=== PATIENT | male | born 1985 | race Caucasian/White ===

== ENCOUNTER 2019-10-04 11:49 | Emergency (ER) | payer BC, OTHER ==
[~2019-10-04] VITALS: Ht 190 cm; Wt 68.3 kg
[2019-10-04] MEDS ORDERED: KETOROLAC 30 MG/ML VIAL IVP STA (11:59)
--- NOTE | 2019-10-04 11:59 | ED Chest Pain ---
General Stated Complaint: CHEST PAIN Source: patient Exam Limitations: no limitations, clinical condition History of Present Illness Date Seen by Provider: Oct 04, 2019 Time Seen by Provider: 11:56 Initial Comments 34-year-old male presents with right-sided chest pain. Patient reports that he woke up with the pain this morning. The pain gets worse with deep breath, movement of his arm or chest, palpation of his chest. He states he short of breath because it hurts to take a deep breath. He has no nausea vomiting diaphoresis. Reports that he does a lot of physical work and thinks that he might have pulled a muscle. He has no other systemic complaints such as cough, fevers, chills. Allergies and Home Medications Allergies Coded Allergies: No Known Drug Allergies (Unverified , 10/04/19) Patient Home Medication List Home Medication List Reviewed: Yes Review of Systems Review of Systems Constitutional: No chills, No fever Respiratory: See HPI Cardiovascular: See HPI Gastrointestinal: No Symptoms Reported Genitourinary: No Symptoms Reported Musculoskeletal: see HPI Psychiatric/Neurological: No Symptoms Reported Past Chhguxz-Xutxvp-Ekbqkp Hx Past Med/Social Hx: Reviewed Nursing Past Med/Soc Hx Patient Social History Recent Foreign Travel: No Physical Exam Vital Signs Vital Signs - First Documented 10/04/19 11:55 Temp 36.8 Pulse 126 Resp 22 B/P (MAP) 123/78 (93) Pulse Ox 100 Capillary Refill : Height, Weight, BMI Height: '" Weight: lbs. oz. kg; BMI Method: General Appearance: WD/WN Neck: Non Tender, Supple Respiratory: Lungs Clear, Normal Breath Sounds, Other (chest wall tenderness that is totally reproducible, worsens with any movement of his right arm or pectoris muscle.) Cardiovascular: Regular Rate, Rhythm, No Edema Extremity: Normal Capillary Refill Neurologic/Psychiatric: Oriented x3, No Motor/Sensory Deficits, Normal Mood/Affect, enterprise resource planner II-XII Norm as Tested Progress/Results/Core Measures Results/Orders Lab Results Laboratory Tests Test 10/04/19 11:58 Range/Units White Blood Count 8.3 4.3-11.0 10^3/uL Red Blood Count 5.51 4.35-5.85 10^6/uL Hemoglobin 17.1 13.3-17.7 G/DL Hematocrit 50 40-54 % Mean Corpuscular Volume 90 80-99 FL Mean Corpuscular Hemoglobin 31 25-34 PG Mean Corpuscular Hemoglobin Concent 34 32-36 G/DL Red Cell Distribution Width 12.3 10.0-14.5 % Platelet Count 250 130-400 10^3/uL Mean Platelet Volume 10.2 7.4-10.4 FL Neutrophils (%) (Auto) 68 42-75 % Lymphocytes (%) (Auto) 21 12-44 % Monocytes (%) (Auto) 10 0-12 % Eosinophils (%) (Auto) 1 0-10 % Basophils (%) (Auto) 1 0-10 % Neutrophils # (Auto) 5.7 1.8-7.8 X 10^3 Lymphocytes # (Auto) 1.7 1.0-4.0 X 10^3 Monocytes # (Auto) 0.8 0.0-1.0 X 10^3 Eosinophils # (Auto) 0.0 0.0-0.3 10^3/uL Basophils # (Auto) 0.1 0.0-0.1 10^3/uL Sodium Level 139 135-145 MMOL/L Potassium Level 4.4 3.6-5.0 MMOL/L Chloride Level 99 98-107 MMOL/L Carbon Dioxide Level 27 21-32 MMOL/L Anion Gap 13 5-14 MMOL/L Blood Urea Nitrogen 27 H 7-18 MG/DL Creatinine 1.34 H 0.60-1.30 MG/DL Estimat Glomerular Filtration Rate > 60 BUN/Creatinine Ratio 20 Glucose Level 95 70-105 MG/DL Calcium Level 10.5 H 8.5-10.1 MG/DL Corrected Calcium 8.5-10.1 MG/DL Total Bilirubin 0.9 0.1-1.0 MG/DL Aspartate Amino Transf (AST/SGOT) 27 5-34 U/L Alanine Aminotransferase (ALT/SGPT) 14 0-55 U/L Alkaline Phosphatase 55 40-136 U/L Troponin I < 0.30 <0.30 NG/ML Total Protein 8.3 H 6.4-8.2 GM/DL Albumin 5.2 H 3.2-4.5 GM/DL My Orders Orders - CHAUDHARI,CHARLOTTE L DO Cbc With Automated Diff (10/04/19 11:59) Chest 1 View Ap/Pa Only (10/04/19 11:59) Ekg Tracing (10/04/19 11:59) Comprehensive Metabolic Panel (10/04/19 11:59) Monitor-Rhythm Ecg Trace Only (10/04/19 11:59) Aspirin Tablet (Aspirin Tablet) (10/04/19 12:00) Ed Iv/Invasive Line Start (10/04/19 11:59) Troponin I Fs (10/04/19 11:59) Ketorolac Injection (Toradol Injection) (10/04/19 11:59) Orphenadrine Injection (Norflex Injectio (10/04/19 12:00) Ed Iv/Invasive Line Start (10/04/19 12:35) Ns Iv 1000 Ml (Sodium Chloride 0.9%) (10/04/19 12:35) Medications Given in ED Current Medications Medications Dose Ordered Sig/Edin Route Start Time Stop Time Status Last Admin Dose Admin Aspirin 325 mg ONCE ONCE PO 10/04/19 12:00 10/04/19 12:02 DC 10/04/19 12:26 325 MG Orphenadrine Citrate 60 mg ONCE ONCE IV 10/04/19 12:00 10/04/19 12:02 DC 10/04/19 12:26 60 MG Vital Signs/I&O 10/04/19 11:55 Temp 36.8 Pulse 126 Resp 22 B/P (MAP) 123/78 (93) Pulse Ox 100 Progress Progress Note : Time: 12:55 Progress Note Patient symptoms improved with Toradol and Norflex. Negative EKG, x-ray and troponin. Patient does have some mild acute kidney injury with dehydration. Prior to discharge and will give him a 1 L normal saline bolus. Discussed with him the need to follow-up and have his kidney function rechecked by his primary care provider. Patient is otherwise stable. Patient will be discharged home with recommendation to follow-up by the week for repeat of his labs. Initial ECG Impression Date: Oct 04, 2019 Initial ECG Impression Time: 11:57 Initial ECG Rhythm: S.Tach Initial ECG Impression: Nonspecific Changes Comment early repol Departure Impression Primary Impression: Chest wall pain Additional Impression: Acute kidney injury Disposition: 01 HOME, SELF-CARE Condition: Stable Departure-Patient Inst. Referrals: NO,LOCAL PHYSICIAN (PCP/Family) Primary Care Physician Patient Instructions: Acute Kidney Failure (DC), Dehydration, Adult (DC), Pleuritic Chest Pain (DC) Add. Discharge Instructions: Follow-up with your primary care provider later this week for recheck of your kidney function. Drink plenty of fluids. Return to the ER as needed CHARLOTTE CHAUDHARI DO Oct 04, 2019 11:59 POS
[2019-10-04] MEDS ORDERED: ORPHENADRINE 60 MG/2 ML (NORFLEX) AMP IV ONE (12:00)
[2019-10-04] MEDS ORDERED: ASPIRIN 325 MG (5 GR) TABLET PO ONE (12:00)
[2019-10-04 12:07] LABS: HEMATOCRIT 50 % (40-54); HEMOGLOBIN 17.1 G/DL (13.3-17.7); MEAN CORPUSCULAR HEMOGLOBIN 31 PG (25-34); MEAN CORPUSCULAR HGB CONC 34 G/DL (32-36); MEAN CORPUSCULAR VOLUME 90 FL (80-99); MEAN PLATELET VOLUME 10.2 FL (7.4-10.4); PLATELET COUNT 250 10^3/uL (130-400); RED CELL DISTRIBUTION WIDTH 12.3 % (10.0-14.5); WHITE BLOOD COUNT 8.3 10^3/uL (4.3-11.0)
[2019-10-04 12:08] LABS: BASOPHILS # (AUTO) 0.1 10^3/uL (0.0-0.1); BASOPHILS % (AUTO) 1 % (0-10); EOSINOPHILS % (AUTO) 1 % (0-10); LYMPHOCYTES # (AUTO) 1.7 X 10^3 (1.0-4.0); LYMPHOCYTES % (AUTO) 21 % (12-44); MONOCYTES # (AUTO) 0.8 X 10^3 (0.0-1.0); MONOCYTES % (AUTO) 10 % (0-12); NEUTROPHILS # (AUTO) 5.7 X 10^3 (1.8-7.8); NEUTROPHILS % (AUTO) 68 % (42-75)
--- NOTE | 2019-10-04 12:13 | Diagnostic Imaging Report ---
INDICATION: Chest pain. EXAMINATION: Portable chest at 11:45 AM. FINDINGS: The heart size and pulmonary vascularity are normal. The lungs are clear. There are no effusions or pneumothoraces. IMPRESSION: Negative chest. Dictated by: Dictated on workstation # [id number]
[2019-10-04 12:29] LABS: SODIUM 139 MMOL/L (135-145)
[2019-10-04 12:30] LABS: ALANINE AMINOTRANSFERASE 14 U/L (0-55); ALBUMIN 5.2 GM/DL (3.2-4.5); ALKALINE PHOSPHATASE 55 U/L (40-136); BILIRUBIN,TOTAL 0.9 MG/DL (0.1-1.0); BUN/CREATININE RATIO 20; CALCIUM 10.5 MG/DL (8.5-10.1); CARBON DIOXIDE 27 MMOL/L (21-32); CHLORIDE 99 MMOL/L (98-107); CREATININE SERUM 1.34 MG/DL (0.60-1.30); GFR ESTIMATED > 60; GLUCOSE 95 MG/DL (70-105); POTASSIUM 4.4 MMOL/L (3.6-5.0); TOTAL PROTEIN 8.3 GM/DL (6.4-8.2)
[2019-10-04] MEDS ORDERED: NS IV 1000 ML 1,000 ML IV SCH (12:35)
[2019-10-04 13:40] VITALS: BP 100/63
== END 2019-10-04 13:40 | disposition home or self-care (01) ==
LOC: ER FS 11:51
DX: S37.009A Unspecified injury of unspecified kidney, initial encounter (principal); R07.89 Other chest pain; X50.1XXA Overexertion from prolonged static or awkward postures, initial encounter
CPT/HCPCS: 36415; 71045; 80053; 84484; 85025; 93005; 93041; 96361; 96374; 96375

== ENCOUNTER 2021-03-03 12:35 | Emergency (ER) | payer SELFPAY ==
[~2021-03-03] VITALS: Ht 190.5 cm; Wt 72.0 kg
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
[2021-03-03 12:59] LABS: BASOPHILS # (AUTO) 0.1 10^3/uL (0.0-0.1); BASOPHILS % (AUTO) 1 % (0-10); EOSINOPHILS # (AUTO) 0.1 10^3/uL (0.0-0.3); EOSINOPHILS % (AUTO) 2 % (0-10); HEMATOCRIT 49 % (40-54); HEMOGLOBIN 17.1 G/DL (13.3-17.7); LYMPHOCYTES % (AUTO) 40 % (12-44); MEAN CORPUSCULAR HEMOGLOBIN 31 PG (25-34); MEAN CORPUSCULAR HGB CONC 35 G/DL (32-36); MEAN CORPUSCULAR VOLUME 89 FL (80-99); MEAN PLATELET VOLUME 10.5 FL (7.4-10.4); MONOCYTES # (AUTO) 0.5 X 10^3 (0.0-1.0); MONOCYTES % (AUTO) 9 % (0-12); NEUTROPHILS # (AUTO) 2.3 X 10^3 (1.8-7.8); NEUTROPHILS % (AUTO) 48 % (42-75); PLATELET COUNT 212 10^3/uL (130-400); WHITE BLOOD COUNT 4.9 10^3/uL (4.3-11.0)
[2021-03-03] MEDS ORDERED: NS IV 1000 ML 1,000 ML IV SCH (13:00)
[2021-03-03 13:14] LABS: ALANINE AMINOTRANSFERASE 11 U/L (0-55); ALKALINE PHOSPHATASE 60 U/L (40-136); BILIRUBIN,TOTAL 1.4 MG/DL (0.1-1.0); BUN/CREATININE RATIO 19; CALCIUM 9.7 MG/DL (8.5-10.1); CARBON DIOXIDE 21 MMOL/L (21-32); CHLORIDE 101 MMOL/L (98-107); CREATININE SERUM 1.14 MG/DL (0.60-1.30); GFR ESTIMATED > 60; GLUCOSE 105 MG/DL (70-105); MAGNESIUM 1.5 MG/DL (1.6-2.4); POTASSIUM 4.1 MMOL/L (3.6-5.0); SODIUM 137 MMOL/L (135-145)
[2021-03-03 13:15] LABS: ALBUMIN 4.7 GM/DL (3.2-4.5); TOTAL PROTEIN 7.2 GM/DL (6.4-8.2)
--- NOTE | 2021-03-03 13:26 | Diagnostic Imaging Report ---
EXAMINATION: Chest 2 view HISTORY: Dizziness COMPARISON: 10/04/2019 FINDINGS: The lungs are clear without edema or pneumonia. No pleural effusion or pneumothorax. Heart size is normal. IMPRESSION: 1. Clear lungs. Dictated by: Dictated on workstation # [id number]
[2021-03-03 14:00] VITALS: BP 118/68
== END 2021-03-03 14:00 | disposition home or self-care (01) ==
LOC: EDUNIT# 12:39 → ER FS 12:41
DX: R00.2 Palpitations (principal); I10 Essential (primary) hypertension
CPT/HCPCS: 36415; 71046; 80053; 82962; 83735; 84443; 84484; 85025; 93005; 93041

== ENCOUNTER 2023-03-02 19:19 | Emergency (ER) | payer MEDICAID ==
[~2023-03-02] VITALS: Ht 190.5 cm; Wt 67.0 kg
[2023-03-02 19:30] VITALS: BP 136/93
--- NOTE | 2023-03-02 19:30 | ED GU-Male ---
General Stated Complaint: URINATING BLOOD History of Present Illness Date Seen by Provider: Mar 02, 2023 Time Seen by Provider: 19:23 Initial Comments 37-year-old male is here with complaints of hematuria which occurred a little while ago today. It was a first-time occurrence. Patient also reports mucus in the urine. Patient's girlfriend was tested positive for HSV, and both of them are having a full STD work-up with the PCP in [place], and the results should be in this week sometime. Patient denies dysuria, abdominal pain or suprapubic pain, flank pain, fever and chills, polyuria, genital lesions. Patient does not want STD testing in the ER since he did it with his PCP. Allergies and Home Medications Allergies Coded Allergies: No Known Drug Allergies (Unverified , 10/04/19) Patient Home Medication List Home Medication List Reviewed: Yes Review of Systems Review of Systems Constitutional: no symptoms reported EENTM: no symptoms reported Respiratory: no symptoms reported Cardiovascular: no symptoms reported Gastrointestinal: no symptoms reported Genitourinary: hematuria Musculoskeletal: no symptoms reported Skin: no symptoms reported Psychiatric/Neurological: No Symptoms Reported Endocrine: No Symptoms Reported Hematologic/Lymphatic: No Symptoms Reported Past Ptxlemo-Qkrqsp-Pawkdv Hx Seasonal Allergies Seasonal Allergies: No Past Medical History Surgeries: No Respiratory: No Cardiac: No Neurological: No Genitourinary: No Gastrointestinal: No Musculoskeletal: No Endocrine: No HEENT: No Cancer: No Psychosocial: No Integumentary: No Blood Disorders: No Adverse Reaction/Blood Tranf: No Physical Exam Vital Signs Vital Signs - First Documented 03/02/23 19:30 Temp 36.7 Pulse 101 Resp 16 B/P (MAP) 136/93 (107) Capillary Refill : Height, Weight, BMI Height: '" Weight: lbs. oz. kg; 19.00 BMI Method: General Appearance: WD/WN, no apparent distress HEENT: PERRL/EOMI Gastrointestinal: normal bowel sounds, non tender, soft Back: normal inspection, no CVA tenderness, no vertebral tenderness Extremities: normal range of motion Neurologic/Psychiatric: no motor/sensory deficits, alert, oriented x 3 Skin: normal color Lymphatic: no adenopathy Progress/Results/Core Measures Suspected Sepsis SIRS Temperature: Pulse: Respiratory Rate: Blood Pressure / Mean: Results/Orders Lab Results Laboratory Tests Test 03/02/23 19:35 Range/Units Urine Color YELLOW Urine Clarity CLEAR Urine pH 6.0 5-9 Urine Specific Dora >=1.030 1.016-1.022 Urine Protein NEGATIVE NEGATIVE Urine Glucose (UA) NEGATIVE NEGATIVE Urine Ketones NEGATIVE NEGATIVE Urine Nitrite NEGATIVE NEGATIVE Urine Bilirubin NEGATIVE NEGATIVE Urine Urobilinogen 0.2 < = 1.0 MG/DL Urine Leukocyte Esterase NEGATIVE NEGATIVE Urine RBC (Auto) NEGATIVE NEGATIVE Urine RBC 5-10 H /HPF Urine WBC 10-25 H /HPF Urine Crystals NONE /LPF Urine Bacteria MODERATE H /HPF Urine Casts NONE /LPF Urine Mucus LARGE H /LPF Urine Culture Indicated YES My Orders Orders - ANAIS BEDOYA MD Ua Culture If Indicated (03/02/23 19:30) Urine Culture (03/02/23 19:35) Vital Signs/I&O 03/02/23 19:30 Temp 36.7 Pulse 101 Resp 16 B/P (MAP) 136/93 (107) Capillary Refill : Progress Note : Progress Note 1. HEMATURIA AND URINE MUCUS: - UA is positive for RBC, bacteria, mucus, WBC, but is negative for leukocyte esterase or nitrites. -Patient had a full STD work-up with his PCP this past week, and the results will be coming in this week, so patient is denying any STD work-up in the ER at this time. Patient's girlfriend has genital HSV and is currently undergoing a STD work-up as well outpatient. -Denies any flank pain, fever and chills, abdominal pain, nausea and vomiting, dysuria. UA is negative for UTI. Unlikely to be kidney stones based on history and clinical exam. Patient's symptoms may likely be due to a STD. -Advised to follow-up with PCP for lab results for his STD screen and appropriate treatment as needed. Safe sex precautions advised. -If flank pain starts, advised to return to ER for CAT scan to rule out stones. -Follow-up with urology within the next 7 days. Call for appointment. -Advised adequate hydration -The patient was seen in the ED, and treated appropriately to presentation at a specific point in time. Patient is informed that there is a possibility that disease and illness can evolve and change in acuity rapidly or slowly after patient is discharged from the ER. Precautionary advice given to the patient for immediate return to ER if symptoms worsen or do not resolve, and to seek emergency care sooner rather than later. Pt also advised on the importance of PCP follow up and compliance with management and follow up plan with PCP and/or specialist, as this is part of the management plan. Pt verbally expressed understanding. Departure Impression Primary Impression: Hematuria Qualified Codes: R31.9 - Hematuria, unspecified Disposition: 01 HOME, SELF-CARE Condition: Stable Departure-Patient Inst. Referrals: NO,LOCAL PHYSICIAN (PCP/Family) Primary Care Physician Patient Instructions: Blood in Urine (Hematuria), Adult ED, Blood in the Urine (Hematuria) in Adults Add. Discharge Instructions: -Advised to follow-up with PCP for lab results for his STD screen and appropriate treatment as needed. Safe sex precautions advised. -If flank pain starts, advised to return to ER for CAT scan to rule out stones. -Follow-up with urology within the next 7 days. Call for appointment. -Advised adequate hydration ANAIS BEDOYA MD Mar 02, 2023 19:30
[2023-03-02 19:37] LABS: BILIRUBIN,URINE NEGATIVE (NEGATIVE); CLARITY,URINE CLEAR; COLOR,URINE YELLOW; GLUCOSE, URINE (UA) NEGATIVE (NEGATIVE); KETONES,URINE NEGATIVE (NEGATIVE); LEUKOCYTE ESTERASE ,URINE NEGATIVE (NEGATIVE); NITRITE,URINE NEGATIVE (NEGATIVE); PROTEIN,URINE NEGATIVE (NEGATIVE)
[2023-03-02 19:45] LABS: BACTERIA,URINE MODERATE /HPF
== END 2023-03-02 20:25 | disposition home or self-care (01) ==
LOC: EDUNIT# 19:19 → ER FS 19:25
DX: R31.9 Hematuria, unspecified (principal)
CPT/HCPCS: 81000; 87088; 99282

== ENCOUNTER 2023-04-27 22:25 | Emergency (ER) | payer MEDICAID ==
[~2023-04-27] VITALS: Ht 187.9 cm; Wt 69.0 kg
[2023-04-27] MEDS ORDERED: ONDANSETRON 4 MG/2 ML (SDV) Z0FRAN IVP STA (22:34)
--- NOTE | 2023-04-27 22:42 | ED General ---
General Stated Complaint: PASSED OUT|VOMITING Source of Information: Patient, Spouse History of Present Illness Date Seen by Provider: Apr 27, 2023 Time Seen by Provider: 22:28 Initial Comments 37 yo male presenting by pov from home with his . He was feeling weak and nauseated. He had an episode at home where he fainted and then had an episode of vomiting when he woke up from fainting. He reports this has been ongoing problem for over 5 years and nobody has been able to tell him what causes the episodes. Ceci his felt that he was "almost having a seizure" so she brought him to the ED. He has not followed up with clinic or any specialists for further work up of this recently. He admits to smoking marijuana but denies other drugs and reports he has quit alcohol and no longer drinks. He denies having pain anywhere. He feels nauseated and weak currently. Timing/Duration: 1-3 Hours Modifying Factors: worse with Movement (he had fainting episode at home while he was up walking) Associated Systoms: No Chest Pain, No Cough, No Diaphoresis, No Fever/Chills, No Headaches, No Loss of Appetite; Malaise, Nausea/Vomiting; No Rash, No Seizure, No Shortness of Air; Syncope, Weakness Allergies and Home Medications Allergies Coded Allergies: No Known Drug Allergies (Unverified , 10/04/19) Patient Home Medication List Home Medication List Reviewed: Yes Review of Systems Review of Systems Constitutional: see HPI; No chills, No fever EENTM: no symptoms reported Respiratory: No cough, No short of breath Cardiovascular: No chest pain Gastrointestinal: nausea, vomiting Genitourinary: No dysuria Musculoskeletal: no symptoms reported Skin: no symptoms reported Psychiatric/Neurological: See HPI, Anxiety, Weakness Past Jbkruas-Iggudc-Mzosrg Hx Patient Social History Tobacco Use?: Yes Tobacco type used: Cigarettes Smoking Status: Current Everyday Smoker Substance use?: Yes Substance type: Marijuana Alcohol Use?: No Seasonal Allergies Seasonal Allergies: No Past Medical History Surgery/Hospitalization HX: Recurring episodes of syncope Surgeries: No Respiratory: No Cardiac: No Neurological: No Genitourinary: No Gastrointestinal: No Musculoskeletal: No Endocrine: No HEENT: No Cancer: No Psychosocial: No Integumentary: No Blood Disorders: No Adverse Reaction/Blood Tranf: No Physical Exam Vital Signs Vital Signs - First Documented 04/27/23 22:27 Temp 36.5 Pulse 97 Resp 16 B/P (MAP) 130/91 (104) Pulse Ox 98 O2 Delivery Room Air Capillary Refill : Height, Weight, BMI Height: '" Weight: lbs. oz. kg; 18.00 BMI Method: General Appearance: Anxious, Mild Distress, Thin Eyes: Bilateral Eye PERRL, Bilateral Eye EOMI HEENT: PERRL/EOMI, Normal ENT Inspection, Pharynx Normal, Moist Mucous Membranes Neck: Full Range of Motion, Normal Inspection, Non Tender, Supple Respiratory: Chest Non Tender, Lungs Clear, Normal Breath Sounds, No Accessory Muscle Use, No Respiratory Distress Cardiovascular: Regular Rate, Rhythm, Normal Peripheral Pulses Gastrointestinal: Normal Bowel Sounds, No Pulsatile Mass, Non Tender, Soft Rectal: Deferred Extremity: Normal Capillary Refill, Normal Inspection, No Pedal Edema Neurologic/Psychiatric: Alert, Oriented x3, 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 Norm as Tested Skin: Warm/Dry Progress/Results/Core Measures Suspected Sepsis SIRS Temperature: Pulse: Respiratory Rate: Laboratory Tests 04/27/23 22:34: White Blood Count 6.2 Blood Pressure / Mean: Laboratory Tests 04/27/23 22:34: Creatinine 1.27, INR Comment 0.9, Platelet Count 222, Total Bilirubin 0.4 Results/Orders Lab Results Laboratory Tests Test 04/27/23 22:34 Range/Units White Blood Count 6.2 4.3-11.0 10^3/uL Red Blood Count 4.77 4.30-5.52 10^6/uL Hemoglobin 14.8 13.3-17.7 g/dL Hematocrit 43 40-54 % Mean Corpuscular Volume 91 80-99 fL Mean Corpuscular Hemoglobin 31 25-34 pg Mean Corpuscular Hemoglobin Concent 34 32-36 g/dL Red Cell Distribution Width 11.8 10.0-14.5 % Platelet Count 222 130-400 10^3/uL Mean Platelet Volume 9.8 9.0-12.2 fL Immature Granulocyte % (Auto) 0 % Neutrophils (%) (Auto) 68 42-75 % Lymphocytes (%) (Auto) 22 12-44 % Monocytes (%) (Auto) 7 0-12 % Eosinophils (%) (Auto) 2 0-10 % Basophils (%) (Auto) 1 0-10 % Neutrophils # (Auto) 4.2 1.8-7.8 10^3/uL Lymphocytes # (Auto) 1.4 1.0-4.0 10^3/uL Monocytes # (Auto) 0.4 0.0-1.0 10^3/uL Eosinophils # (Auto) 0.1 0.0-0.3 10^3/uL Basophils # (Auto) 0.1 0.0-0.1 10^3/uL Immature Granulocyte # (Auto) 0.0 0.0-0.1 10^3/uL Prothrombin Time 12.9 12.2-14.7 SEC INR Comment 0.9 0.8-1.4 Activated Partial Thromboplast Time 25 24-35 SEC Sodium Level 141 135-145 MMOL/L Potassium Level 4.2 3.6-5.0 MMOL/L Chloride Level 101 98-107 MMOL/L Carbon Dioxide Level 28 21-32 MMOL/L Anion Gap 12 5-14 MMOL/L Blood Urea Nitrogen 19 H 7-18 MG/DL Creatinine 1.27 0.60-1.30 MG/DL Estimat Glomerular Filtration Rate 76 BUN/Creatinine Ratio 15 Glucose Level 121 H 70-105 MG/DL Calcium Level 10.0 8.5-10.1 MG/DL Corrected Calcium 8.5-10.1 MG/DL Magnesium Level 2.0 1.6-2.4 MG/DL Total Bilirubin 0.4 0.1-1.0 MG/DL Aspartate Amino Transf (AST/SGOT) 21 5-34 U/L Alanine Aminotransferase (ALT/SGPT) 14 0-55 U/L Alkaline Phosphatase 55 40-136 U/L Troponin I < 0.30 <0.30 NG/ML Pro-B-Type Natriuretic Peptide < 36.0 <125.0 PG/ML Total Protein 7.1 6.4-8.2 GM/DL Albumin 4.6 H 3.2-4.5 GM/DL Lipase 15 8-78 U/L Salicylates Level 0.4 L 5.0-20.0 MG/DL Acetaminophen Level < 10 L 10-30 UG/ML Serum Alcohol < 10 <10 MG/DL My Orders Orders - ALEX BLAND MD Cbc With Automated Diff (04/27/23 22:34) Magnesium (04/27/23 22:34) Chest 1 View Ap/Pa Only (04/27/23 22:34) Ekg Tracing (04/27/23 22:34) Comprehensive Metabolic Panel (04/27/23:34) Protime With Inr (04/27/23:34) Partial Thromboplastin Time (04/27/23:34) O2 (04/27/23:34) Monitor-Rhythm Ecg Trace Only (04/27/23 22:34) Ed Iv/Invasive Line Start (04/27/23:34) Lipase (04/27/23:34) Troponin I Fs (04/27/23:34) Probnp Fs (04/27/23:34) Alcohol (04/27/23:34) Acetaminophen (04/27/23:34) Salicylate (04/27/23:) Ns Iv 1000 Ml (Sodium Chloride 0.9%) (04/27/23 22:45) Ondansetron Injection (Zofran Injectio (04/27/23:34) Vital Signs/I&O 04/27/23 04/27/23 22:27 23:52 Temp 36.5 Pulse 97 87 Resp 16 20 B/P (MAP) 130/91 (104) 100/60 Pulse Ox 98 99 O2 Delivery Room Air Room Air 04/28/23 00:00 Intake Total 1000 ml Balance 1000 ml Capillary Refill : Progress Note #1: Progress Note Potential diagnosis of cardiac arrhythmia, electrolyte imbalance, dehydration, UTI, pneumonia, substance abuse, alcohol abuse, hypoglycemia, diabetes, hyper tension, hypotension. Placed on cardiac toy packer and initially his heart rate was showing 85 and appeared to be a sinus rhythm without ectopy or ST elevation. We will obtain electrocardiogram for further evaluation of his heart rate and rhythm and looking for signs of ischemia. Establish peripheral IV access and send labs for complete blood count, comprehensive metabolic profile, magnesium, alcohol, acetaminophen, salicylate, urinalysis, urine drug screen, coagulation factors, troponin, proBNP. Administer normal saline 1 L IV fluid bolus for hydration, ondansetron 4 mg IV for nausea and vomiting. Single view chest x-ray to look for pathology in his chest to account for his complaint of syncope and nausea Progress Note #2: Time: 22:51 Progress Note On my personal interpretation and review of his 1 view chest x-ray he has no acute infiltrate or effusion. Appears similar to imaging from March 03, 2021 as well as back into 2019. His complete blood count showed a normal white blood cell count of 6.2 and hemoglobin of 14.8. He is not showing anemia as his hemoglobin is high normal. His oxygen saturation is 98 to 100% on room air. His blood pressure is 111/80. He appears anxious on arrival but is calming down in the room. He refused to provide urine for any testing. Progress Note #3: Time: 23:36 Progress Note His comprehensive metabolic panel did not show any acute electrolyte abnormality other than he did have mild elevation of his BUN to 19 and creatinine of 1.27. His glucose was 121 but he had been trying to eat something recently. His magnesium was normal at 2. His troponin was less than 0.3 and negative. His proBNP was not elevated as it was less than 36. His aspirin level was 0.4 and negative. As well as his acetaminophen and alcohol levels were both less than 10 and negative. He continued to refuse to provide a urine specimen. His vital signs have all stayed stable with oxygen saturation of 100%. His heart rate continues to be in the 80s and sinus rhythm. His blood pressure has come down as he was resting in the bed. His last one was 97/59. Will review with patient and spouse that his test here did not show anything other than may be some mild dehydration. Encouraged to drink plenty of fluids and electrolyte drinks to stay hydrated. Encouraged to check back with the [facility] clinic and they may want to try and set him up for a clinical athletic instructor or Holter test or some additional testing as an outpatient. He may have POTS syndrome where he has postural orthostatic tachycardia or not giving his body a chance to adjust as he changes positions. He does look more alert and less anxious at discharge and reports he is feeling better after hydration in the ED. ECG Initial ECG Impression Date: Apr 27, 2023 Initial ECG Impression Time: 22:38 Initial ECG Rate: 84 Initial ECG Rhythm: Normal Sinus Initial ECG Comparisson: Unchanged (03/03/2021) Comment My personal interpretation and review of his electrocardiogram shows a normal sinus rhythm with a heart rate of 84 bpm. IN interval [address] elevation. QT interval 369 ms with a QTc interval 410 ms. Overall appears similar to prior tracing from March 03, 2021 other than he does not have the artifact and tremors that was present in 2021. Diagnostic Imaging Diagonstic Imaging: Xray Plain Films/CT/US/NM/MRI: chest Reviewed: Reviewed by Me Departure Impression Primary Impression: Syncope Qualified Codes: R55 - Syncope and collapse Additional Impressions: Nausea & vomiting Qualified Codes: R11.2 - Nausea with vomiting, unspecified Dehydration Disposition: HOME, SELF-CARE Condition: Stable Departure-Patient Inst. Decision time for Depature: 23:50 Referrals: NO,LOCAL PHYSICIAN (PCP) Primary Care Physician [facility] Patient Instructions: Dehydration, Adult ED, Fainting, Adult ED, Nausea and Vomiting, Adult ED Add. Discharge Instructions: Your blood work and Chest xray and electrocardiogram had all looked ok tonight. It did look like you were slightly dehydrated. Make sure you are drinking plenty of water and electrolyte drinks to stay well hydrated. Establish care with [facility] clinic or provider of your choice to have continued work up and evaluation of these episodes. They may need to have you do a Holter monitor where you wear a device that monitors your heart rate and rhythm or see a specialist to try and get a better idea of why this keeps happening for you. ALEX BLAND MD Apr 27, 2023 22:42
[2023-04-27] MEDS ORDERED: NS IV 1000 ML 1,000 ML IV SCH (22:45)
[2023-04-27 22:46] LABS: BASOPHILS # (AUTO) 0.1 10^3/uL (0.0-0.1); BASOPHILS % (AUTO) 1 % (0-10); EOSINOPHILS # (AUTO) 0.1 10^3/uL (0.0-0.3); EOSINOPHILS % (AUTO) 2 % (0-10); HEMATOCRIT 43 % (40-54); HEMOGLOBIN 14.8 g/dL (13.3-17.7); LYMPHOCYTES # (AUTO) 1.4 10^3/uL (1.0-4.0); LYMPHOCYTES % (AUTO) 22 % (12-44); MEAN CORPUSCULAR HEMOGLOBIN 31 pg (25-34); MEAN CORPUSCULAR HGB CONC 34 g/dL (32-36); MEAN CORPUSCULAR VOLUME 91 fL (80-99); MEAN PLATELET VOLUME 9.8 fL (9.0-12.2); MONOCYTES # (AUTO) 0.4 10^3/uL (0.0-1.0); MONOCYTES % (AUTO) 7 % (0-12); NEUTROPHILS # (AUTO) 4.2 10^3/uL (1.8-7.8); NEUTROPHILS % (AUTO) 68 % (42-75); PLATELET COUNT 222 10^3/uL (130-400); WHITE BLOOD COUNT 6.2 10^3/uL (4.3-11.0)
[2023-04-27 23:11] LABS: INR 0.9 (0.8-1.4); PROTHROMBIN TIME PATIENT 12.9 SEC (12.2-14.7)
[2023-04-27 23:17] LABS: ALANINE AMINOTRANSFERASE 14 U/L (0-55); ALKALINE PHOSPHATASE 55 U/L (40-136); BILIRUBIN,TOTAL 0.4 MG/DL (0.1-1.0); BUN/CREATININE RATIO 15; CARBON DIOXIDE 28 MMOL/L (21-32); CHLORIDE 101 MMOL/L (98-107); CREATININE SERUM 1.27 MG/DL (0.60-1.30); GFR ESTIMATED 76; GLUCOSE 121 MG/DL (70-105); POTASSIUM 4.2 MMOL/L (3.6-5.0); SODIUM 141 MMOL/L (135-145)
[2023-04-27 23:18] LABS: ACETAMINOPHEN < 10 UG/ML (10-30); ALBUMIN 4.6 GM/DL (3.2-4.5); LIPASE 15 U/L (8-78); SALICYLATE 0.4 MG/DL (5.0-20.0); TOTAL PROTEIN 7.1 GM/DL (6.4-8.2)
[2023-04-27 23:52] VITALS: BP 100/60
--- NOTE | 2023-04-28 07:48 | Diagnostic Imaging Report ---
INDICATION: Syncope Single AP view of the chest is obtained with comparison made to study of 10/04/2019. FINDINGS: Heart size and pulmonary vascularity are within normal limits, and the lungs are clear, bilaterally. Calcified lymph nodes are present in the right hilum. IMPRESSION: Unremarkable chest. Dictated by: Dictated on workstation # [id number]
== END 2023-04-28 | disposition home or self-care (01) ==
LOC: EDUNIT# 22:25 → ER FS 22:27
DX: R55 Syncope and collapse (principal); R11.2 Nausea with vomiting, unspecified; E86.0 Dehydration; R79.89 Other specified abnormal findings of blood chemistry; F17.210 Nicotine dependence, cigarettes, uncomplicated
CPT/HCPCS: 36415; 71045; 80053; 80320; 80329; 83690; 83735; 83880; 84484; 85025; 85610; 85730; 93005; 93041